=== PATIENT | male | born 1935 | race Caucasian/White ===

== ENCOUNTER 2016-12-05 06:25 | Inpatient (IN) | payer OTHER, MEDICAID ==
[~2016-12-05] VITALS: Ht 162.6 cm; Wt 54.4 kg
[2016-12-05] MEDS ORDERED: SODIUM CHLORIDE 0.9% 500 ML IV ONE (07:14)
[2016-12-05 07:46] LABS: BASOPHILS % 0.4 % (0.0-2.0); EOSINOPHILS % 2.3 % (0.0-5.0); HEMATOCRIT. 41.4 % (42.0-52.0); HEMOGLOBIN. 14.1 g/dL (14.0-18.0); LYMPHOCYTES % 16.1 % (20.0-50.0); MEAN CORPUSCULAR HEMOGLOBIN 31.3 pg (28.0-32.0); MEAN CORPUSCULAR VOLUME 91.6 fL (80.0-94.0); MEAN PLATELET VOLUME 8.5 fl (7.4-10.4); MONOCYTES % 10.3 % (2.0-8.0); NEUTROPHILS % 70.9 % (40.0-76.0); PLATELET 208 x1000/uL (130-400); RED BLOOD CELL COUNT 4.52 mill/uL (4.7-6.1)
[2016-12-05 07:56] LABS: PARTIAL THROMBOPLASTIN TIME 23.6 sec (24.0-34.0); PROTHROMBIN TIME 10.7 sec
[2016-12-05 07:58] LABS: CARBON DIOXIDE 32 mEq/L (21-32); CHLORIDE 103 mEq/L (98-107)
[2016-12-05 08:03] LABS: CREATINE KINASE MB FRACTION 4.6 ng/mL (0.5-3.6); TROPONIN I < 0.02 ng/mL (0.00-0.04)
[2016-12-05] MEDS ORDERED: ACETAMINOPHEN 325MG TABLET PO PRN (09:15)
[2016-12-05] MEDS ORDERED: NA PHOS,M-B/NA PHOS,DI-BA ENEMA 118ML PR PRN (09:15)
[2016-12-05] MEDS ORDERED: DIPHENHYDRAMINE 50MG/ML VIAL IV PRN (09:15)
[2016-12-05] MEDS ORDERED: ACETAMINOPHEN 650MG/20.3ML UDC GT PRN (09:15)
[2016-12-05] MEDS ORDERED: MAGNESIUM/ALUMINUM HYDROXIDE/SIMETHICONE 30ML UDC PO PRN (09:15)
[2016-12-05] MEDS ORDERED: ONDANSETRON HCL 4MG/2ML VIAL IV PRN (09:15)
[2016-12-05] MEDS ORDERED: HYDROCODONE/ACETAMINOPHEN 5/325MG TABLET PO PRN (09:15)
[2016-12-05] MEDS ORDERED: CLONIDINE 0.1MG TABLET PO PRN (09:15)
[2016-12-05] MEDS ORDERED: DOCUSATE SODIUM 100MG CAPSULE PO PRN (09:15)
[2016-12-05] MEDS ORDERED: ACETAMINOPHEN 650MG SUPP PR PRN (09:15)
[2016-12-05] MEDS ORDERED: IPRATROPIUM/ALBUTEROL 0.5-3(2.5)MG/3ML NEB INH PRN (09:15)
[2016-12-05] MEDS ORDERED: GUAIFENESIN 200MG/10ML SUGAR FREE UDC PO PRN (09:15)
[2016-12-05] MEDS ORDERED: HYDROMORPHONE HCL/PF 2MG/ML CPJ IV PRN (09:15)
[2016-12-05 09:41] LABS: CLARITY URINE CLEAR (CLEAR); COLOR URINE YELLOW (YELLOW); GLUCOSE URINE NEGATIVE (NEGATIVE); KETONES URINE NEGATIVE (NEGATIVE); LEUKOCYTE ESTERASE URINE NEGATIVE (NEGATIVE); NITRITE URINE NEGATIVE (NEGATIVE); OCCULT BLOOD URINE NEGATIVE (NEGATIVE); PROTEIN URINE NEGATIVE (NEGATIVE); SPECIFIC GRAVITY URINE 1.021 (1.005-1.030)
[2016-12-05 09:55] LABS: *AMPHETAMINES SCREEN URINE NEGATIVE (NEGATIVE); *BARBITURATES SCREEN URINE NEGATIVE (NEGATIVE); *BENZODIAZEPINES SCREEN URINE NEGATIVE (NEGATIVE); *COCAINE SCREEN URINE NEGATIVE (NEGATIVE); CANNABINOID URINE SCREEN NEGATIVE (NEGATIVE); METHADONE URINE SCREEN NEGATIVE (NEGATIVE); OPIATES URINE SCREEN NEGATIVE (NEGATIVE); PHENCYCLIDINE URINE SCREEN NEGATIVE (NEGATIVE)
[2016-12-05 11:09] LABS: CREATINE KINASE 256 IU/L (39-308)
[2016-12-05 11:30] VITALS: BP 124/70
[2016-12-05 12:00] VITALS: BP 131/78
[2016-12-05] MEDS: ENOXAPARIN 40MG/0.4ML SYR SUBCUT SCH (12:00)
[2016-12-05] MEDS ORDERED: HALOPERIDOL LACTATE 5MG/ML VIAL IM SCH (13:00)
[2016-12-05] MEDS: LORAZEPAM 2MG/ML CPJ IM PRN ×2 (13:35→21:46)
[2016-12-05] MEDS: SODIUM CHLORIDE 0.9% INJ 3ML FLUSH IVF SCH ×2 (14:00→22:20)
[2016-12-05 14:44] LABS: CREATINE KINASE 343 IU/L (39-308); TROPONIN I < 0.02 ng/mL (0.00-0.04)
[2016-12-05 16:00] VITALS: BP 81/45
[2016-12-05] MEDS: SODIUM CHLORIDE 0.9% 1,000 ML IV SCH (16:45)
[2016-12-05 18:10] VITALS: BP 96/65
[2016-12-05 20:00] VITALS: BP 113/64
[2016-12-05] MEDS ORDERED: QUETIAPINE FUMARATE 25MG TABLET PO SCH (21:00)
[2016-12-05] MEDS: DONEPEZIL HCL 10MG TABLET PO SCH (21:45)
[2016-12-05 23:17] LABS: CREATINE KINASE 318 IU/L (39-308); TROPONIN I < 0.02 ng/mL (0.00-0.04)
[2016-12-06] VITALS: BP 102/67
[2016-12-06 04:00] VITALS: BP 114/63
[2016-12-06 08:00] VITALS: BP 119/76
[2016-12-06 12:00] VITALS: BP 105/66
[2016-12-06] MEDS: ENOXAPARIN 40MG/0.4ML SYR SUBCUT SCH (12:44)
[2016-12-06] MEDS: SODIUM CHLORIDE 0.9% INJ 3ML FLUSH IVF SCH ×2 (14:00→22:00)
[2016-12-06 16:00] VITALS: BP 122/74
[2016-12-06] MEDS: NAMENDA XR 28 MG CAPSULE PO SCH (17:54)
[2016-12-06] MEDS: QUETIAPINE FUMARATE 25MG TABLET PO SCH (17:54)
[2016-12-06] MEDS: SODIUM CHLORIDE 0.9% 1,000 ML IV SCH (17:57)
[2016-12-06] MEDS: HALOPERIDOL LACTATE 5MG/ML VIAL IM PRN (18:58)
[2016-12-06 20:00] VITALS: BP 93/60
[2016-12-06] MEDS: DONEPEZIL HCL 10MG TABLET PO SCH (20:57)
[2016-12-07] VITALS: BP 130/83
[2016-12-07 04:00] VITALS: BP 127/80
[2016-12-07] MEDS: SODIUM CHLORIDE 0.9% 1,000 ML IV SCH (06:52)
[2016-12-07] MEDS: SODIUM CHLORIDE 0.9% INJ 3ML FLUSH IVF SCH ×3 (06:52→22:00)
[2016-12-07 08:00] VITALS: BP 145/91
[2016-12-07] MEDS: NAMENDA XR 28 MG CAPSULE PO SCH (09:03)
[2016-12-07] MEDS: QUETIAPINE FUMARATE 25MG TABLET PO SCH ×2 (09:03→18:12)
[2016-12-07 12:00] VITALS: BP 122/77
[2016-12-07 12:16] LABS: PROSTRATE SPECIFIC AG TOTAL 2.99 ng/mL (0.0-4.0)
[2016-12-07] MEDS: ENOXAPARIN 40MG/0.4ML SYR SUBCUT SCH (12:52)
[2016-12-07 16:00] VITALS: BP 129/79
[2016-12-07 20:00] VITALS: BP 94/58
[2016-12-08] VITALS: BP 118/67
[2016-12-08] MEDS: DONEPEZIL HCL 10MG TABLET PO SCH ×2 (03:53→23:22)
[2016-12-08 04:00] VITALS: BP 116/76
[2016-12-08] MEDS: HALOPERIDOL LACTATE 5MG/ML VIAL IM PRN (04:34)
[2016-12-08 08:00] VITALS: BP 119/73
[2016-12-08] MEDS ORDERED: QUET25TA PO (08:34)
[2016-12-08] MEDS ORDERED: DONE10TA11 PO (08:34)
[2016-12-08] MEDS: NAMENDA XR 28 MG CAPSULE PO SCH (08:41)
[2016-12-08] MEDS: QUETIAPINE FUMARATE 25MG TABLET PO SCH ×2 (08:41→17:10)
[2016-12-08 10:15] LABS: BASOPHILS % 0.4 % (0.0-2.0); EOSINOPHILS % 1.4 % (0.0-5.0); HEMOGLOBIN. 15.2 g/dL (14.0-18.0); LYMPHOCYTES % 15.8 % (20.0-50.0); MEAN CORPUSCULAR VOLUME 91.5 fL (80.0-94.0); MEAN PLATELET VOLUME 8.5 fl (7.4-10.4); MONOCYTES % 8.2 % (2.0-8.0); NEUTROPHILS % 74.2 % (40.0-76.0); PLATELET 235 x1000/uL (130-400); RED BLOOD CELL COUNT 4.92 mill/uL (4.7-6.1); RED CELL DISTRIBUTION WIDTH 13.8 % (11.6-14.6)
[2016-12-08 10:25] LABS: CARBON DIOXIDE 24 mEq/L (21-32); CHLORIDE 107 mEq/L (98-107)
[2016-12-08 12:00] VITALS: BP 100/61
[2016-12-08] MEDS: ENOXAPARIN 40MG/0.4ML SYR SUBCUT SCH (12:15)
[2016-12-08] MEDS: SODIUM CHLORIDE 0.9% INJ 3ML FLUSH IVF SCH ×2 (13:25→23:22)
[2016-12-08] MEDS: SODIUM CHLORIDE 0.9% 1,000 ML IV SCH (15:48)
[2016-12-08 16:00] VITALS: BP 99/55
[2016-12-08 20:00] VITALS: BP 100/60
[2016-12-09] VITALS: BP 113/67
[2016-12-09] MEDS: HALOPERIDOL LACTATE 5MG/ML VIAL IM PRN (00:43)
[2016-12-09 04:00] VITALS: BP 129/84
[2016-12-09] MEDS: SODIUM CHLORIDE 0.9% INJ 3ML FLUSH IVF SCH ×3 (07:14→21:38)
[2016-12-09 08:00] VITALS: BP 113/76
[2016-12-09] MEDS: QUETIAPINE FUMARATE 25MG TABLET PO SCH ×2 (08:25→17:07)
[2016-12-09] MEDS: NAMENDA XR 28 MG CAPSULE PO SCH (08:26)
[2016-12-09 12:00] VITALS: BP 102/68
[2016-12-09] MEDS: ENOXAPARIN 40MG/0.4ML SYR SUBCUT SCH (14:05)
[2016-12-09 16:00] VITALS: BP 105/68
[2016-12-09 20:00] VITALS: BP 98/69
[2016-12-09] MEDS: DONEPEZIL HCL 10MG TABLET PO SCH (21:38)
[2016-12-10] VITALS: BP 116/72
[2016-12-10 04:00] VITALS: BP 100/71
[2016-12-10] MEDS: SODIUM CHLORIDE 0.9% INJ 3ML FLUSH IVF SCH ×3 (06:50→21:15)
[2016-12-10 08:00] VITALS: BP 118/76
[2016-12-10] MEDS: QUETIAPINE FUMARATE 25MG TABLET PO SCH ×2 (08:29→16:12)
[2016-12-10] MEDS: NAMENDA XR 28 MG CAPSULE PO SCH (08:31)
[2016-12-10 12:00] VITALS: BP 101/72
[2016-12-10] MEDS: ENOXAPARIN 40MG/0.4ML SYR SUBCUT SCH (12:46)
[2016-12-10 16:00] VITALS: BP 110/68
[2016-12-10 20:00] VITALS: BP 143/86
[2016-12-10] MEDS: DONEPEZIL HCL 10MG TABLET PO SCH (21:15)
[2016-12-11] VITALS (7 sets, daily range): BP systolic 94–159; BP diastolic 58–98
[2016-12-11] MEDS: SODIUM CHLORIDE 0.9% INJ 3ML FLUSH IVF SCH ×2 (07:07→16:12)
[2016-12-11] MEDS: QUETIAPINE FUMARATE 25MG TABLET PO SCH ×2 (08:25→16:15)
[2016-12-11] MEDS: NAMENDA XR 28 MG CAPSULE PO SCH (08:25)
[2016-12-11] MEDS: ENOXAPARIN 40MG/0.4ML SYR SUBCUT SCH (13:18)
[2016-12-11] MEDS: DONEPEZIL HCL 10MG TABLET PO SCH (20:31)
== END 2016-12-11 21:20 | disposition hospice, home (50) | DRG 558 ==
LOC: ER 07:45 → 7WST 08:29 → EDBEDREQ 08:32 → ENRESERV 09:14 → 6EST 17:59
PROVIDERS: ADMIT Family Medicine; ATTEND Family Medicine
DX: M62.82 Rhabdomyolysis (principal); E86.0 Dehydration; F02.80 Dementia in other diseases classified elsewhere, unspecified severity, without behavioral disturbance, psychotic disturbance, mood disturbance, and anxiety; G30.9 Alzheimer's disease, unspecified; R29.6 Repeated falls; W19.XXXA Unspecified fall, initial encounter; F32.9 Major depressive disorder, single episode, unspecified; G47.00 Insomnia, unspecified; S00.83XA Contusion of other part of head, initial encounter; S00.91XA Abrasion of unspecified part of head, initial encounter; Y93.89 Activity, other specified; Y92.89 Other specified places as the place of occurrence of the external cause; Y99.8 Other external cause status; Z87.891 Personal history of nicotine dependence
CPT/HCPCS: 36415; 70450; 70486; 71010; 72125; 72170; 80053; 80305; 81003; 82550; 82553; 82607; 83735; 83880; 84153; 84443; 84484; 85025; 85610; 85730; 93005; 94664; 96360; 97110; 97116; 97163; 97530; 99285; A6261; C1893; J1630; J1650; J2060; J7030; J7040; J7620